=== PATIENT | male | born 1980 | race Caucasian/White ===

== ENCOUNTER 2017-03-31 16:09 | Emergency (ER) | payer MEDICAID ==
[~2017-03-31] VITALS: Ht 170.2 cm; Wt 93.4 kg
[2017-03-31 16:25] VITALS: BP 147/88
== END 2017-03-31 17:51 | disposition home or self-care (01) ==
LOC: ED 16:09
DX: G51.0 Bell's palsy (principal); I10 Essential (primary) hypertension